=== PATIENT | male | born 1940 | race Caucasian/White ===

== ENCOUNTER 2019-02-14 02:43 | Outpatient (CLI) | payer MEDICARE, OTHER, SELFPAY ==
[2019-02-14 11:21] LABS: Anion Gap 10.5 mmol/L (3-11); BUN 21 mg/dL (7-18); CO2 25.5 mmol/L (21.0-32.0); CREATININE 1.49 mg/dL (0.70-1.30); Calcium 8.7 mg/dL (8.5-10.1); Chloride 105 mmol/L (98-107); Estimated GFR 45.61 (mL/min/1.73m2); Glucose 100 mg/dL (70-100); Potassium 4.1 mmol/L (3.5-5.1); Sodium 141 mmol/L (136-145)
[2019-02-15 09:49] LABS: PSA, Screening 5.6 ng/ml (0-6.5)
== END 2019-02-14 03:03 ==
PROVIDERS: PCP Family Medicine; Visit Provider Family Medicine
DX: I10 Essential (primary) hypertension (principal); R97.20 Elevated prostate specific antigen [PSA]; Z12.5 Encounter for screening for malignant neoplasm of prostate
CPT/HCPCS: 36415; 80048; 84153

== ENCOUNTER 2020-03-22 04:03 | Outpatient (CLI) | payer MEDICARE, SELFPAY ==
[2020-03-22 12:23] LABS: Anion Gap 8.9 mmol/L (3-11); BUN 22 mg/dL (7-18); CO2 26.1 mmol/L (21.0-32.0); CREATININE 1.57 mg/dL (0.70-1.30); Chloride 105 mmol/L (98-107); Estimated GFR 42.83 (mL/min/1.73m2); Glucose 112 mg/dL (74-106); Potassium 4.7 mmol/L (3.5-5.1); Sodium 140 mmol/L (136-145)
[2020-03-25 10:17] LABS: PSA, Screening 6.7 ng/mL (0.0-6.5)
== END 2020-03-22 04:23 ==
PROVIDERS: PCP Family Medicine; Visit Provider Family Medicine
DX: N13.9 Obstructive and reflux uropathy, unspecified (principal); Z12.5 Encounter for screening for malignant neoplasm of prostate; I10 Essential (primary) hypertension
CPT/HCPCS: 36415; 80048; 84153

== ENCOUNTER 2021-01-29 14:54 | Outpatient (REF) | payer MEDICARE, SELFPAY ==
[2021-01-29 22:30] LABS: BUN 20 mg/dL (7-18); CREATININE 1.4 mg/dL (0.70-1.30); Calculated LDL 84 mg/dL (<100); Cholesterol 160 mg/dL (<200); Estimated GFR 48.76 (mL/min/1.73m2); HDL Cholesterol 52 mg/dL (40-60); Triglyceride 120 mg/dL (<150)
[2021-01-29 22:36] LABS: Hemoglobin A1C 5.9 % (<5.7)
[2021-01-30 18:11] LABS: PSA, Screening 6.4 ng/mL (0.0-6.5)
== END 2021-01-29 14:55 | disposition home or self-care (01) ==
LOC: LBN 14:54
PROVIDERS: PCP Nurse Practitioner Family; Visit Provider Nurse Practitioner Family
DX: R73.9 Hyperglycemia, unspecified (principal); I10 Essential (primary) hypertension; N13.9 Obstructive and reflux uropathy, unspecified; E66.9 Obesity, unspecified; Z12.5 Encounter for screening for malignant neoplasm of prostate; Z00.00 Encounter for general adult medical examination without abnormal findings
CPT/HCPCS: 80061; 84153; 84520; 82565; 83036

== ENCOUNTER 2022-06-16 16:27 | Outpatient (REF) | payer MEDICARE, SELFPAY ==
[2022-06-16 21:21] LABS: Bilirubin Negative (Negative); Blood Trace-intact (Negative); Clarity Cloudy (Clear); Glucose Negative (Negative); Ketones Negative (Negative); Leukocyte Esterase Trace (Negative); Nitrite Negative (Negative); Urobilinogen 0.2 EU/dL (Up TO 0.2)
[2022-06-16 22:16] LABS: Bacteria Many HPF (Negative); C & S Indicated? Yes; Casts Negative LPF (Negative); Crystals Few Triple Phos HPF (Negative); Epithelial Cells Negative HPF (Negative); Mucus Negative (Negative); RBC Negative HPF (0-2); WBC >50 HPF (0-5)
== END 2022-06-16 16:28 | disposition home or self-care (01) ==
LOC: LBN 16:27
PROVIDERS: PCP Nurse Practitioner Family; Visit Provider Physician Assistant
DX: R39.15 Urgency of urination (principal); R35.0 Frequency of micturition; N39.0 Urinary tract infection, site not specified
CPT/HCPCS: 87077; 81003; 81015; 87086; 87186

== ENCOUNTER 2022-07-30 16:07 | Inpatient (IN) | payer MEDICARE, SELFPAY ==
--- NOTE | 2022-07-30 16:00 | RT.EKG_ITS ---
APPROVED REPORT Exam: Resting ECG Reason for Exam: chest pain Patient Location: E HR:95 bpm ECG Measurements Heart Rate 95 AXIS IA 178 P 78 QRSd 90 QRS 23 QT 346 T 52 QTc 435 Conclusion Sinus rhythm...normal P axis, V-rate 60- 99
[2022-07-30 16:15] VITALS: BP 161/86; PULSE 90; RESP 20; TEMP 36.8; O2SAT 98
--- NOTE | 2022-07-30 16:24 | ED.GENADUL_ITS ---
Discharge Plan Disposition Patient Disposition: [facility] INPATIENT Condition: Improving Discharge Details Chief Complaint: Chest Pain Clinical Impression: Unstable angina Primary Care Provider: Sanchez Gomez ED Provider: Dustin De Jesus Home Meds and New Rx's Prescriptions: No Action amlodipine 10 mg tablet 10 mg PO DAILY Qty: 90 4RF ibuprofen 800 mg tablet 800 mg PO TID PRN (Reason: pain) Qty: 30 2RF Rx Instructions: Take with food losartan 50 mg tablet 50 mg PO DAILY Qty: 90 3RF Medical Decision Making This is an 82-year-old male who presents on referral from urgent care. Has history of hypertension. He states his primary form of exercise is playing golf and will typically walk 9 holes. Last weekend while walking he developed anterior chest pressure and decided to use a golf cart which improved the discomfort. Today he was golfing and again developed chest pressure that persisted during the golf round while using a cart. He states he now has no further chest discomfort. He is not known to have coronary disease. He arrives chest pain-free. Differential diagnosis is worrisome for an anginal type equivalent. Patient was placed on a monitor technician, IV access established and he was referred for laboratory and chest x- ray. Patient's laboratories will note a positive troponin at the low level of 70. CBC is unremarkable. Chemistries note a BUN of 23 and creatinine 1.5, BNP of 92. Chest x-ray with no acute findings. See the formal report. Given the patient's history of exertional chest discomfort, low-grade troponin elevation, and the risk factors for coronary artery disease, I do feel he ought to be admitted. HPI General Mode of arrival: ambulatory . Date/Time Provider Initiated Documentation: 07/30/22 16:12 . Limitations to Documentation: no limitations . Information obtained by: patient . History of Present Illness 82 year old M presents to the emergency department with the chief complaint of Chest pain with exertion, now improved, described as mild, and is localized to the chest. Patient reports no radiation. Patient started experiencing this day(s) and it has been intermittent and now resolved. No relieving factors improve symptom(s), No exacerbating factors reported . Patient notes denies shortness of breath, syncope and weakness. Patient did receive the following treatments prior to arrival, none Related Data Home Medications Medication Instructions Recorded Confirmed ibuprofen 800 mg tablet 800 mg PO TID PRN pain #30 tabs 07/01/20 07/30/22 amlodipine 10 mg tablet 10 mg PO DAILY #90 tab-caps 01/30/22 07/30/22 losartan 50 mg tablet 50 mg PO DAILY #90 tabs 07/29/22 07/30/22 Previous Rx's Medication Instructions Recorded ibuprofen 800 mg tablet 800 mg PO TID PRN pain #30 tabs 07/01/20 amlodipine 10 mg tablet 10 mg PO DAILY #90 tab-caps 01/30/22 losartan 50 mg tablet 50 mg PO DAILY #90 tabs 07/29/22 Allergies Allergy/AdvReac Type Severity Reaction Status Date / Time HAJA Inhibitors AdvReac COUGH Verified 07/30/22 15:47 General Stated Complaint: Chest Pain PHYLLIS: 2 Review of Systems Narrative: No syncope. Denies fall or injury. No fever or cough. 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 Brother No problems noted. Sister No problems noted. Sister No problems noted. Sister No problems noted. Son No problems noted. Daughter No problems noted. Social History Smoking/Tobacco Use Status: Current every day Tobacco Type: cigarettes Second Hand Exposure: Yes Smoking risk assessment performed?: Yes Alcohol Intake: never Drug use: Never Substance use type: does not use Caregiver/Support person: No Household members: spouse Housing: house Communication Needs: None Do you need help understanding health information?: Rarely Pets and animals: No Sexually active: Yes Do you think of yourself as: straight/heterosexual Current gender identity: male What is your relationship status?: How often do you talk on the phone with friends or family?: once per week How often do you get together with friends or relatives?: decline to answer How often do you attend caodaism or zoroastrianism services?: 4 or more times per year Do you belong to any clubs or organized social groups?: yes Panel score (0-1 are the most socially isolated patients): 3 What type of physical activity do you participate in: walking and other Details: golf Duration: > 90 minutes/day Frequency: 5-6 times per week Liss/Roman Catholic: Church Special liss needs: No Seatbelt use: always Helmet use: No Drive intox or ride w/intox class a truck driver: No Do you feel safe at home: Yes Do you feel safe in your relationship?: Yes Exam Narrative Exam Narrative: GEN: awake, alert, oriented 3. Pleasant, well groomed, interactive. HEAD: Normocephalic, atraumatic ENT: Mucous membranes moist, oropharynx unremarkable, External ear exam un remarkable EYES: PERRL, EOMI NECK: Full ROM, no JEAN, no menigismus CHEST/RESP: Nontender, clear to auscultation bilateral, no wheeze/rhonchi/rales CARDIOVASCULAR: RRR, no murmur, rub liz. 2+ Rad pulse bilateral ABDOMEN: Soft, nontender, no mass. +Bowel sounds EXT: Full ROM, no edema, no rash Neuro: Grossly normal neurologic exam, conversant, interactive. Psych: Speech fluent, thoughts congruent, affect normal Course Vital Signs Vital signs: Vital Signs Temperature 36.8 C 07/30/22 16:15 Pulse 90 07/30/22 16:15 Respiratory Rate 20 07/30/22 16:15 Blood Pressure 161/86 H 07/30/22 16:15 Pulse Oximetry 98 07/30/22 16:15 Temperature 36.8 C 07/30/22 16:15 Temperature Source Temporal Artery Scan 07/30/22 16:15 Pulse 90 07/30/22 16:15 Respiratory Rate 20 07/30/22 16:15 Blood Pressure 161/86 H 07/30/22 16:15 Blood Pressure Position Supine 07/30/22 16:15 Pulse Oximetry 98 07/30/22 16:15 Oxygen Delivery Method Room Air 07/30/22 16:15 Oxygen Flow Rate 0 07/30/22 16:15 Pain Level 0 07/30/22 16:15
[2022-07-30 16:41] LABS: Abs Immature Grans 0.04 10^3/uL (0.0-0.06); Absolute Basophil Count 0.03 10^3/uL (0.0-0.2); Absolute Eosinophil Count 0.04 10^3/uL (0.0-0.7); Absolute Monocyte Count 0.59 10^3/uL (0.1-0.8); Absolute Neutrophil Count 6.95 10^3/uL (1.2-6.7); Basophils % 0.3; Eosinophils % 0.5; HCT 42.4 % (40.0-50.0); HGB 13.9 g/dL (13.5-17.5); Immature Grans % 0.5; Lymphocytes % 12.6; MCH 29.9 pg (27.0-33.0); MCHC 32.8 % (32.0-36.0); MCV 91 fL (80-95); MPV 10.3 fL (8.0-11.0); Monocytes % 6.7; Neutrophils % 79.4; Platelet Count 167 10^3/uL (130-400); RBC 4.65 10^6/uL (4.36-5.78); RDW 12.9 % (11.8-14.1); RDW-SD 43.6 fL; WBC 8.75 10^3/uL (4.4-10.8)
--- NOTE | 2022-07-30 17:02 | DI.RAD_ITS ---
Exam(s) XR PORTABLE CHEST AP EXAM: XR PORTABLE CHEST AP CLINICAL HISTORY: chest pain. TECHNIQUE: 2D digital imaging was performed. COMPARISON: CR PORTABLE CHEST ONE VIEW from 08/07/2015 FINDINGS: Single AP portable view. Heart size is upper normal. The mediastinum is not widened. Lungs are clear. No infiltrates nor obvious pleural effusions. IMPRESSION: No acute pulmonary findings on this single AP portable view of the chest. DATA REPOSITORY: RADIATION DOSE DELIVERED:
[2022-07-30 17:18] VITALS: RESP 20
--- NOTE | 2022-07-30 17:29 | DI.VRAD_ITS ---
PROCEDURE INFORMATION: Exam: XR Chest Exam date and time: 07/30/2022 4:42 PM Age: 82 years old Clinical indication: Other: Chest pain TECHNIQUE: Imaging protocol: Radiologic exam of the chest. Views: 1 view. COMPARISON: CR PORTABLE CHEST ONE VIEW 08/07/2015 8:05 PM FINDINGS: Lungs: Unremarkable. No consolidation. Pleural spaces: Unremarkable. No pleural effusion. No pneumothorax. Heart/Mediastinum: Unremarkable. No cardiomegaly. Bones/joints: Unremarkable. IMPRESSION: 1. No acute findings. 2. Clear lung anguiano and pleural space. 3. Stable exam since 08/07/2015. Dictated and Authenticated by: Gustavo Anderson MD. Ordering:PATRICK Chan MD
[2022-07-30 17:41] LABS: ALT 32 U/L (16-63); AST 27 U/L (15-37); Albumin 3.8 g/dL (3.4-5.0); Alkaline Phosphatase 73 U/L (46-116); Anion Gap 13.1 mmol/L (3-11); BUN 23 mg/dL (7-18); Bilirubin, Total 0.8 mg/dL (0.2-1.0); CO2 22.9 mmol/L (21.0-32.0); CREATININE 1.5 mg/dL (0.70-1.30); Calcium 8.8 mg/dL (8.5-10.1); Chloride 107 mmol/L (98-107); Estimated GFR 46.48 (mL/min/1.73m2); Glucose 113 mg/dL (74-106); Magnesium 1.8 mg/dL (1.8-2.4); NT-proBNP 92 pg/mL (<300); Potassium 3.9 mmol/L (3.5-5.1); Sodium 143 mmol/L (136-145); Total Protein 8.2 g/dL (6.4-8.2)
[2022-07-30 17:44] LABS: Troponin I 73 ng/L (<or=60)
[2022-07-30] MEDS: Aspirin 325 MG TAB PO (17:50)
[2022-07-30 18:15] LABS: Source Nasal/Nares
[2022-07-30] MEDS: Enoxaparin 100 MG/ML SYR SC (18:31)
[2022-07-30] MEDS: Clopidogrel 300 MG TAB PO (18:32)
[2022-07-30 18:46] LABS: COVID-19 PCR Negative (Negative)
[2022-07-30 20:13] LABS: Troponin I 120 ng/L (<or=60)
[2022-07-30 20:19] VITALS: BP 134/86; PULSE 82; RESP 16; TEMP 37.1; O2SAT 97
[2022-07-30 20:30] VITALS: PULSE 79
[2022-07-30] MEDS: Atorvastatin 40 MG TAB 80 MG PO (21:13)
--- NOTE | 2022-07-30 22:46 | W.PM.HP.N ---
Date of service: 07/30/22 Time of Service: 21:40 Assessment and Plan Assessment and plan (1) Unstable angina: Status: Acute Assessment and plan: Patient's typical sympotms and elevated troponin are consistent with acute coronary syndrome. Pattern fits with unstable angina. EKG actually does not show ischemic changes. He is now chest pain free. I agree with treating with anticoagulation, DAPT, high intensity statin. 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 Given this, I will resume low dose beta dori therapy with metoprolol this time. He is not in CHF clinically. He should have further evaluation, likely should have non-emergent catheterization vs starting with ETT/MPI. Will consult cardiology to advise this choice and on timing. (2) Bradycardia: Status: Acute Assessment and plan: Pulse is now up in the 80s off metoprolol. Resuming beta dori therapy as above, but will not push dose. (3) Renal insufficiency, mild: Status: Acute Assessment and plan: Looks like he has stable stage 3a CKD. Losartan should help this, though he he hesitant about this medicaiton since he started it in the past few weeks. (4) Essential hypertension: Status: Chronic Assessment and plan: As above, start metoprolol. Cutting back losartan to make sure BP can tolerate this. Continue amlodipine for now but it may make sense to cut this in favor of ARB to get renal insufficinecy. (5) DVT prophylaxis: Status: Acute Assessment and plan: He is on full dose LMWH (6) Discharge planning issues: Status: Acute Assessment and plan: Real plans to shut down his home and travel sound next week, he is concerned about the timing of the work up. We will figure that out. History of Present Illness History of Present Illness Chief Complaint: chest pressure Narrative: 82 yo man with a history of hypertension and stage 3a CKD presenting with exertional chest pressure occurring after progressively less physical activity in the past week. He first felt dull pain/pressure in upper chest about a week ago while walking 9 holes of golf. Bilateral, moderate, slight radiation to left arm. Associated with some shortness of breath, diaphoresis. No nausea, increase in chronic dizziness, or palpitations. That first time the pain lasted a few minutes, stopped after he got in a cart and he was able to continue playing golf without pain. On the day of admission, he was using a cart and he still had the chest pain for about 2.5 hours strait. It didn't go away until he stopped physical activity all together. Currently he has no chest pain. Very relevantly, Mr. Eckert states his PCP had recently noted his pulse was too low, and first cut his atenolol in half about a month ago, then stopped it all together about 2 weeks ago. It was replaced with losartan, which he titrated up from 25mg to 50mg yesterday. Review of Systems Constitutional Constitutional: Denies anorexia, Denies chills, Denies fever(s), Denies headache(s), Denies lethargy, Denies weakness and Denies weight gain Eyes Eyes: Denies change in vision and Denies irritation ENT Ears, Nose, Mouth, and Throat: Denies dizziness, Denies headache(s), Denies nasal congestion, Denies nasal discharge and Denies sore throat Cardiovascular Cardiovascular: Reports as per HPI, Denies pedal edema, Denies palpitations and Denies orthopnea Respiratory Respiratory: Denies cough, Denies excessive phlegm production and Denies wheezing Gastrointestinal Gastrointestinal: Denies abdominal pain, Denies hematochezia, Denies change in stool character, Denies heartburn and Denies vomiting Genitourinary Genitourinary: Denies hematuria, Denies dysuria and Denies urinary incontinence Musculoskeletal Musculoskeletal: Denies arthralgias and Denies joint swelling Integumentary/Breasts Skin/Breast: Denies rash and Denies skin ulcer Neurologic Neurologic: Denies dizziness, Denies headache(s), Denies sensory deficit and Denies weakness Psychiatric Psychiatric: Denies anxiety and Denies mood swings Endocrine Endocrine: Denies palpitations Hematologic/Lymphatic Hematologic/Lymphatic: Denies easy bleeding Allergic/Immunologic Allergic/Immunologic: Denies wheezing PFSH All Active Problems (Updated 07/30/22 @ 23:08 by Mor Osuna) Discharge planning issues (Acute) DVT prophylaxis (Acute) Unstable angina (Acute) Bradycardia (Acute) Onychogryphosis (Acute) Low back pain of over 3 months duration (Acute) Renal insufficiency, mild (Acute) 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 Brother No problems noted. Sister No problems noted. Sister No problems noted. Sister No problems noted. Son No problems noted. Daughter No problems noted. Social History (Updated 07/30/22 @ 23:03 by Mor Osuna) Smoking/Tobacco Use Status: Former Tobacco Use Second Hand Exposure: No Smoking risk assessment performed?: Yes Alcohol Intake: never Drug use: Never Substance use type: does not use Caregiver/Support person: No Household members: spouse Housing: house Communication Needs: None Do you need help understanding health information?: Rarely Pets and animals: No Sexually active: Yes Do you think of yourself as: straight/heterosexual Current gender identity: male What is your relationship status?: How often do you talk on the phone with friends or family?: once per week How often do you get together with friends or relatives?: decline to answer How often do you attend gnosticist or synagogue services?: 4 or more times per year Do you belong to any clubs or organized social groups?: yes Panel score (0-1 are the most socially isolated patients): 3 What type of physical activity do you participate in: walking and other Details: golf Duration: > 90 minutes/day Frequency: 5-6 times per week Liss/Voodoo: Confucianist Special liss needs: No Seatbelt use: always Helmet use: No Drive intox or ride w/intox non cdl driver: No Do you feel safe at home: Yes Do you feel safe in your relationship?: Yes Additional Social history: Lives with x 59 years Laura in [place]. Retired. [employer] Stays in [facility] every winter. Loves to Golf. Meds Allergies and Home Medications Allergies Allergy/AdvReac Type Severity Reaction Status Date / Time HAJA Inhibitors AdvReac COUGH Verified 07/30/22 15:47 Home Medications Medication Instructions Recorded Confirmed Type ibuprofen 800 mg tablet 800 mg PO TID PRN pain #30 tabs 07/01/20 07/30/22 Rx amlodipine 10 mg tablet 10 mg PO DAILY #90 tab-caps 01/30/22 07/30/22 Rx losartan 50 mg tablet 50 mg PO DAILY #90 tabs 07/29/22 07/30/22 Rx Exam Narrative Exam Narrative: GEN: Alert and oriented, very pleasant and cooperative, gives linear history. No acute distress at rest. HEENT: Head atraumatic. Conjunctiva clear, no icterus. PEERL, EOMI. no rhinorrhea. MMM, OP benign, edentulous. Neck is supple with no masses or lymphadenopathy, trachea midline LUNGS: CTAB with normal effort, speaking in full sentances CV: RRR with no murmurs, gallops, or rubs. ABD: +BS, soft, NT/ND EXT: no cyanosis, clubbing, or edema MSK: No joint redness or swelling NEURO: CN 2-12 grossly intact. Normal movement of 4 extremities. Normal speech and coordination. no tremor SKIN: No rashes or open wounds. PSYCH: normal mood and affect Results Imaging Chest x-ray: report reviewed (1. No acute findings. 2. Clear lung anguiano and pleural space. 3. Stable exam since 08/07/2015.) EKG: report reviewed and image reviewed (NSR, nl axis, no ischemic changes.) Labs Result diagrams: 07/30/22 16:33 07/30/22 17:10 Labs: Laboratory Results - last 24 hr 07/30/22 07/30/22 07/30/22 16:33 16:33 17:10 WBC 8.75 RBC 4.65 Hgb 13.9 Hct 42.4 MCV 91 MCH 29.9 MCHC 32.8 RDW 12.9 Plt Count 167 MPV 10.3 Immature Gran % 0.5 Neutrophils % 79.4 Lymphocytes % 12.6 Monocytes % 6.7 Eosinophils % 0.5 Basophils % 0.3 Nucleated RBC % 0.0 Absolute Neutrophils 6.95 H Absolute Lymphocytes 1.10 L Absolute Monocytes 0.59 Absolute Eosinophils 0.04 Absolute Basophils 0.03 Sodium Cancelled 143 Potassium Cancelled 3.9 Chloride Cancelled 107 Carbon Dioxide Cancelled 22.9 Anion Gap Cancelled 13.1 H BUN Cancelled 23 H Creatinine Cancelled 1.5 H Est GFR (CKD-EPI 2020) Cancelled 46.48 Glucose Cancelled 113 H Calcium Cancelled 8.8 Magnesium Cancelled 1.8 Total Bilirubin Cancelled 0.8 AST Cancelled 27 ALT Cancelled 32 Alkaline Phosphatase Cancelled 73 Troponin I Cancelled 73 H* NT-Pro-B Natriuret Pep Cancelled 92 Total Protein Cancelled 8.2 Albumin Cancelled 3.8 COVID-19 Source SARS-CoV-2 (PCR) 07/30/22 07/30/22 18:06 19:43 WBC RBC Hgb Hct MCV MCH MCHC RDW Plt Count MPV Immature Gran % Neutrophils % Lymphocytes % Monocytes % Eosinophils % Basophils % Nucleated RBC % Absolute Neutrophils Absolute Lymphocytes Absolute Monocytes Absolute Eosinophils Absolute Basophils Sodium Potassium Chloride Carbon Dioxide Anion Gap BUN Creatinine Est GFR (CKD-EPI 2020) Glucose Calcium Magnesium Total Bilirubin AST ALT Alkaline Phosphatase Troponin I 120 H* NT-Pro-B Natriuret Pep Total Protein Albumin COVID-19 Source Nasal/Nares SARS-CoV-2 (PCR) Negative Last Vital Signs Temp 37.1 C 07/30/22 20:19 Pulse 82 07/30/22 20:19 Resp 16 07/30/22 20:19 BP 134/86 07/30/22 20:19 Pulse Ox 97 07/30/22 20:19
[2022-07-30 23:09] VITALS: BP 151/76; PULSE 62; RESP 16; TEMP 37.4; O2SAT 97
[2022-07-30] MEDS: Metoprolol 25 MG TAB PO (23:11)
[2022-07-31] VITALS (8 sets, daily range): BP systolic 119–155; BP diastolic 76–83; PULSE 53–68; RESP 13–18; TEMP 35.8–36.6; O2SAT 98–99
[2022-07-31] MEDS: Enoxaparin 100 MG/ML SYR SC (06:22)
--- NOTE | 2022-07-31 08:03 | INITIAL_ITS ---
- If Service Date Differs Date of service: 07/31/22 Time of Service: 08:03 Care Management Initial Assess REASON FOR HOSPITALIZATION:: NSTEMI PAST MEDICAL HISTORY/PAST SURGICAL HISTORY:: All Active Problems (Updated 07/30/22 @ 23:08 by Mor Osuna). Discharge planning issues (Acute). DVT prophylaxis (Acute). Unstable angina (Acute). Bradycardia (Acute). Onychogryphosis (Acute). Low back pain of over 3 months duration (Acute). Renal insufficiency, mild (Acute). 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 Deviated nasal septum (Chronic). Essential hypertension (Chronic). neg stress test. Heart murmur (Chronic). mitral murmur and click. Obesity (Chronic). Sarcoidosis (Chronic). BPV (benign positional vertigo) (Chronic). Wallenberg syndrome (Chronic). Obstructive uropathy (Chronic). Surgical History . Prostate surgery. Vasectomy PREVIOUS FUNCTIONAL STATUS/SOCIAL/FAMILY SUPPORTS:: John lives in a single family home in [place] with his Laura.He has 2 children, a son who lives in [place] and a daughter who lives in [place]. He also has 2 grandchildren. 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 He is independent at [facility] and does not receive any services. CURRENT FUNCTIONAL STATUS:: John was sitting up in a chair when CM met with him. He was pleasant and engaged easily with CM. John talked about his life in [facility] and how much he loves the peace and quiet. He spent 12 years in [place] and was happy to return to [place]. John shared that he spends ramirez in [place]. He is scheduled to return there next week. He is an avid golfer and looks forward to playing again in [place]. ADVANCE DIRECTIVES:: none on file Has patient been provided with info about the portal/API?: Yes Did the patient sign up for the portal?: Yes (previously) CODE STATUS:: Full Code INSURANCE COVERAGE / FINANCIAL ISSUES:: medicare. [employer] senior supplement CURRENT HOME/COMMUNITY SERVICES/EQUIPMENT:: none PRIMARY CARE PHYSICIAN:: Sanchez Gomez POTENTIAL DISCHARGE NEEDS:: follow up with PCP , cardiology and plan of care PATIENT/FAMILY EDUCATION NEEDS:: Review of discharge instructions, limitations, activity, diet, medications, follow up plan, Ask Me Three TRANSPORTATION:: to be determined by disposition PLAN:: John will be discharged home with no new services. He will follow up with community providers and plan of care and transport with family. CM will follow and assess for ongoing discharge concerns.
[2022-07-31 08:04] LABS: Troponin I 81 ng/L (<or=60)
[2022-07-31] MEDS: amLODIPine 10 MG TAB PO (08:17)
[2022-07-31] MEDS: Metoprolol 25 MG TAB PO (08:17)
[2022-07-31] MEDS: Clopidogrel 75 MG TAB PO (08:17)
[2022-07-31] MEDS: Aspirin E.C. 81 MG TABEC PO (08:18)
[2022-07-31] MEDS: Losartan 50 MG TAB 25 MG PO (08:18)
--- NOTE | 2022-07-31 14:11 | CHAPLAIN ---
John was up in the chair when I visited. He said he is feeling ok and hopes to go home soon. He's been staying in touch with his by phone, but said he hasn't been told much yet so he hasn't been able to relay much information to her.
[2022-07-31] MEDS: Normal Saline Flush 10 ML SYR IVP (14:22)
--- NOTE | 2022-07-31 14:57 | W.PM.DS.N ---
Date of service: 07/31/22 Time of Service: 15:01 DS: Diagnosis Discharge Diagnosis (1) Unstable angina: Status: Acute Asessment and Plan: No chest pain at rest. NSTEMI. Echocardiogram pending. Metoprolol initiated. Recently stopped atenolol d/t bradycardia. HR during this hospitalization was generally in the 60's while taking metoprolol. ASA 81mg and Plavix initiated. Atorvastatin 80mg QHS initiated. MPI stress testing scheduled for outpt this coming Wednesday. Pt instructed on use of SL Nitroglycerin and returning to the ED should CP recur. Light activity around the house only. (2) Renal insufficiency, mild: Status: Acute Asessment and Plan: Chronic; stable. (3) Essential hypertension: Status: Chronic Asessment and Plan: Amlodipine initiated. Losartan decrease from 50mg to 25mg. Metoprolol XL 25mg initiated. Close BP monitoring as outpt, as well as HR monitoring. (4) Discharge planning issues: Status: Acute Asessment and Plan: He is going to his [place] home next Wednesday. MPI Stress testing scheduled for this coming Wednesday. Discharge Plan Disposition Patient Disposition: HOME Condition: Stable Discharge Details Reason For Visit: NSTEMI Admit Date/Time: 07/30/22 18:26 Admit Provider: Mor Osuna Attending Provider: Mor Osuna Primary Care Provider: Sanchez Gomez Hospital Course Hospital Course: 82 yo male with a history of hypertension and stage 3a CKD presenting with exertional chest pressure occurring after progressively less physical activity in the past week.? He first felt dull pain/pressure in upper chest about a week ago while walking 9 holes of golf.? Bilateral, moderate, slight radiation to left arm.? Associated with some shortness of breath, diaphoresis.? No nausea, increase in chronic dizziness, or palpitations.? That first time the pain lasted a few minutes, stopped after he got in a cart and he was able to continue playing golf without pain.? On the day of admission, he was using a cart and he still had the chest pain for about 2.5 hours strait.? It didn't go away until he stopped physical activity all together.? Currently he has no chest pain. Very relevantly, Mr. Eckert states his PCP had recently noted his pulse was too low, and first cut his atenolol in half about a month ago, then stopped it all together about 2 weeks ago.? It was replaced with losartan, which he titrated up from 25mg to 50mg the day before this admission. In ED his troponin was 73. It trended to 120 the down to 73. Labs were otherwise unremarkable. Creatinine 1.5; at his baseline. NTProBNP normal at 92. CXR w/o acute pulmonary findings. See diagnosis ? He will f/u with his PCP in [facility] where he is returning to next week. Home Meds and New Rx's Prescriptions: New clopidogrel 75 mg Tablet 75 mg PO DAILY Qty: 30 0RF aspirin 81 mg Tablet,Delayed Release (Dr/Ec) 81 mg PO DAILY Qty: 0 0RF nitroglycerin 0.4 mg Tablet, Sublingual 0.4 mg sublingual Q5 MIN PRN X3 PRNQty: 12 0RF metoprolol succinate 25 mg tablet extended release 24 hr 25 mg PO HS Qty: 30 0RF atorvastatin 80 mg tablet 80 mg PO QHS Qty: 30 0RF Continued amlodipine 10 mg tablet 10 mg PO DAILY Qty: 90 4RF losartan 50 mg tablet 50 mg PO DAILY Qty: 90 3RF Discontinued ibuprofen 800 mg tablet 800 mg PO TID PRN (Reason: pain) Qty: 30 2RF Rx Instructions: Take with food Discharge Instructions Additional Instructions: Losartan 50mg: take 1/2 tab instead of a whole tab. Stand Alone Forms: Nursing Discharge Form Referrals: [facility] Radiology Nuclear Med [Other] - 08/04/22 11:30 am Activity:: Mild activity only Equipment/Supplies:: No Equipment Needed Diet:: Heart Healthy Discharge Orders Discharge Orders: Discharge Order (Routine); Ordered 07/31/22 Ordered By: Marty Amaya Other Ambulatory Orders: NM MPI rest & stress grp (Routine) Location: None Selected Ordered By: Marty Amaya DS: Summary Time Spent with Patient providing and/or coordinating discharge services: Greater than 30 minutes Status at Discharge Functional status at discharge: independent ambulation Overall status at discharge: patient is not back to baseline Mental Status: mental status grossly normal Speech and Movement: speech and movement normal Mood: congruent mood Affect: normal affect Exam Narrative Exam Narrative: GEN: Alert and oriented, very pleasant and cooperative, gives linear history. No acute distress at rest. Sitting in recliner HEENT: Head atraumatic. Conjunctiva clear, no icterus. LUNGS: CTAB with normal effort, speaking in full sentences CV: RRR with no murmurs ABD: +BS, soft, NT/ND EXT: no cyanosis, clubbing, or edema MSK: No joint redness or swelling NEURO: Normal movement of 4 extremities. Normal speech and coordination. no tremor SKIN: No rashes or open wounds. PSYCH: normal mood and affect Psych Mental Status: mental status grossly normal Speech and Movement: speech and movement normal Mood: congruent mood Affect: normal affect DS: Data Vitals/I&O Vitals and I&O: Vital Signs Temperature 36.1 C L 07/31/22 11:40 Temperature Source Tympanic 07/31/22 11:40 Pulse 53 L 07/31/22 11:40 Pulse Rhythm Regular 07/31/22 08:15 Respiratory Rate 18 07/31/22 11:40 Respiratory Effort Non-Labored 07/31/22 08:15 Respiratory Depth Normal 07/31/22 08:15 Respiratory Pattern Normal 07/31/22 08:15 Blood Pressure 119/76 07/31/22 11:40 Blood Pressure Position Supine 07/30/22 16:15 Pulse Oximetry 98 07/31/22 11:40 Oxygen Delivery Method Room Air 07/31/22 11:40 Oxygen Flow Rate 0 07/31/22 11:40 Pain Level 0 07/31/22 11:40 Intake & Output 07/30/22 07/31/22 07/31/22 23:59 11:59 23:59 Intake Total 400 / 690 290 / 690 Output Total 400 / 400 Balance -400 / -400 400 / 690 290 / 690 Weight 97.522 kg 99.2 kg Intake: IV Oral 400 / 680 280 / 680 Output: Urine 400 / 400 Other: Urine Color Yellow Straw Urine Appearance Clear Urine Odor None Comment pT stated that he voided. Voiding Methods Toilet Toilet Data Completed and Pending Labs on day of discharge: Labs from last 24 hours 07/31/22 07/30/22 07/30/22 07:30 19:43 18:06 WBC RBC Hgb Hct MCV MCH MCHC RDW Plt Count MPV Immature Gran % Neutrophils % Lymphocytes % Monocytes % Eosinophils % Basophils % Nucleated RBC % Absolute Neutrophils Absolute Lymphocytes Absolute Monocytes Absolute Eosinophils Absolute Basophils Sodium Potassium Chloride Carbon Dioxide Anion Gap BUN Creatinine Est GFR (CKD-EPI 2020) Glucose Calcium Magnesium Total Bilirubin AST ALT Alkaline Phosphatase Troponin I 81 H* 120 H* NT-Pro-B Natriuret Pep Total Protein Albumin COVID-19 Source Nasal/Nares SARS-CoV-2 (PCR) Negative 07/30/22 07/30/22 07/30/22 17:10 16:33 16:33 WBC 8.75 RBC 4.65 Hgb 13.9 Hct 42.4 MCV 91 MCH 29.9 MCHC 32.8 RDW 12.9 Plt Count 167 MPV 10.3 Immature Gran % 0.5 Neutrophils % 79.4 Lymphocytes % 12.6 Monocytes % 6.7 Eosinophils % 0.5 Basophils % 0.3 Nucleated RBC % 0.0 Absolute Neutrophils 6.95 H Absolute Lymphocytes 1.10 L Absolute Monocytes 0.59 Absolute Eosinophils 0.04 Absolute Basophils 0.03 Sodium 143 Cancelled Potassium 3.9 Cancelled Chloride 107 Cancelled Carbon Dioxide 22.9 Cancelled Anion Gap 13.1 H Cancelled BUN 23 H Cancelled Creatinine 1.5 H Cancelled Est GFR (CKD-EPI 2020) 46.48 Cancelled Glucose 113 H Cancelled Calcium 8.8 Cancelled Magnesium 1.8 Cancelled Total Bilirubin 0.8 Cancelled AST 27 Cancelled ALT 32 Cancelled Alkaline Phosphatase 73 Cancelled Troponin I 73 H* Cancelled NT-Pro-B Natriuret Pep 92 Cancelled Total Protein 8.2 Cancelled Albumin 3.8 Cancelled COVID-19 Source SARS-CoV-2 (PCR) PFSH All Active Problems NSTEMI (non-ST elevated myocardial infarction) (Acute) Discharge planning issues (Acute) DVT prophylaxis (Acute) Unstable angina (Acute) Bradycardia (Acute) Onychogryphosis (Acute) Low back pain of over 3 months duration (Acute) Renal insufficiency, mild (Acute) 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 Brother No problems noted. Sister No problems noted. Sister No problems noted. Sister No problems noted. Son No problems noted. Daughter No problems noted. Social History Smoking/Tobacco Use Status: Former Tobacco Use Second Hand Exposure: No Smoking risk assessment performed?: Yes Alcohol Intake: never Drug use: Never Substance use type: does not use Caregiver/Support person: No Household members: spouse Housing: house Communication Needs: None Do you need help understanding health information?: Rarely Pets and animals: No Sexually active: Yes Do you think of yourself as: straight/heterosexual Current gender identity: male What is your relationship status?: How often do you talk on the phone with friends or family?: once per week How often do you get together with friends or relatives?: decline to answer How often do you attend adventist or quaker services?: 4 or more times per year Do you belong to any clubs or organized social groups?: yes Panel score (0-1 are the most socially isolated patients): 3 What type of physical activity do you participate in: walking and other Details: golf Duration: > 90 minutes/day Frequency: 5-6 times per week Liss/Sabianist: Adventism Special liss needs: No Seatbelt use: always Helmet use: No Drive intox or ride w/intox national van truck driver: No Do you feel safe at home: Yes Do you feel safe in your relationship?: Yes Additional Social history: Lives with x 59 years Laura in [place]. Retired. [employer] Stays in [facility] every winter. Loves to Golf.
--- NOTE | 2022-07-31 16:47 | PDOC.CMDIS ---
- If Service Date Differs Date of service: 07/31/22 Time of Service: 16:47 LACE Index Scoring Tool - Questions: Length of Stay (in days): 1 Acuity (Admit via E.D.?): Yes Comorbidities: Liver or Renal Disease E.D. Visits: 1 - Answers: Total Score: 10 Risk of Readmission: High Risk Care Management Discharge Reason for Hospitalization: NSTEMI Discharge Plan: Real will be discharged home with no new services. He will follow up with community providers and plan of care and transport with family. Patient/Family Education Needs: Review of discharge instructions, limitations, activity, diet, medications, follow up plan, Ask Me Three
== END 2022-07-31 16:40 | disposition home or self-care (01) | DRG 281 ==
LOC: ER 19:51 → MS 20:06
PROVIDERS: Family Medicine; Admitting Provider Family Medicine; Emergency Provider Emergency Medicine; PCP Nurse Practitioner Family; Visit Provider Family Medicine
DX: I21.4 Non-ST elevation (NSTEMI) myocardial infarction (principal); N13.8 Other obstructive and reflux uropathy; R00.1 Bradycardia, unspecified; N18.31 Chronic kidney disease, stage 3a; I12.9 Hypertensive chronic kidney disease with stage 1 through stage 4 chronic kidney disease, or unspecified chronic kidney disease; M54.50 Low back pain, unspecified; R27.0 Ataxia, unspecified; J34.2 Deviated nasal septum; I34.0 Nonrheumatic mitral (valve) insufficiency; E66.9 Obesity, unspecified; Z68.31 Body mass index [BMI] 31.0-31.9, adult; G46.3 Brain stem stroke syndrome; D86.9 Sarcoidosis, unspecified
CPT/HCPCS: 36415; 80053; 87635; 93005; 96372; 99285; 71045; 83735; 83880; 84484; 85025; 93010; 93306; 99239; J1650

== ENCOUNTER → 2022-08-03 01:23 | Outpatient (CLI) | payer MEDICARE, SELFPAY ==
--- NOTE | 2022-08-03 09:15 | DI.NM_ITS ---
APPROVED REPORT Exam: Exercise Treadmill Patient Location: Out-Patient Room/Bed: Stress Nurse: Valerie Rolon RN Ordering Provider:MASSIEL GARZA, Contact Number: BMI: 30.84 Baseline Rhythm: Sinus Rhythm Indications: UNSTABLE ANGINA, NSTEMI Medical History Medical History: NSTEMI, Unstable angina, HTN, Heart murmur, Benign postural vertigo Cardiac Medications: Nitro SL, Metoprolol succinate, Losartan, Clopidogrel, Atorvastatin, Aspirin, Am lodipine , Allergies: HAJA inhibitors Cardiac Risk Factors: HTN, CVD Previous Cardiac Procedures: None Pretest Chest Pain Characteristics: No chest pain (denies chest pain over the weekend, after d/c from inpatient) Exercise History: Physically active Physical Disabilities: None Lung Sounds: Clear to auscultation Heart Sounds: Regular Stress Test Details Test: Exercise stress testing was performed using a Bharat protocol. Nuclear Acquisition: Rest Tc-99m/Stress Tc-99m 1 day Rest Isotope: Tc-99m Sestamibi. Dose: 10.0 Date: 08/03/2022 Injection Time: 0930 Stress Isotope: Tc-99m Sestamibi. Dose: 33.0 Date: 08/03/2022 Injection Time: 1130 HR Resting HR Supine: 63 bpm Max Heart Rate (APMHR): 139.941378 bpm Resting HR Standin bpm Target HR (85% APMHR): 118.140994 bpm Max HR Achieved: 121 bpm % of APMHR: 87.05 Recovery HR: 85 bpm HR response to stress: Normal HR response to stress Comment: Patient did not hold metoprolol succinate, per MD order BP Resting BP Supine: 178/86 mmHg Resting BP Standin/72 mmHg Max BP: 192/78 mmHg Recovery BP: 164/76 mmHg BP response to stress: Normal blood pressure response to stress. Comment: Hypertensive at baseline ECG Resting ECG: Sinus Rhythm Ectopy: occasional PVC Stress ECG: Sinus Tachycardia ST Change: Horizonta/Upslopingl ST depression Lead(s): inferior leads Stage: [address] Deviation: 2 mm Arrhythmia: PACs, PAC pair Recovery ECG: Sinus Rhythm Recovery ST Change: Upsloping ST depression Lead(s): inferior leads Recovery ST Deviation: 1 mm Recovery Arrhythmia: PACs, occasional PVC Clinical Reason for Termination: Dyspnea Stress Symptoms: Dyspnea Exercise duration: 08 min53 sec Highest Stage Reached: Stage 3: 3.4 mph at 14% grade. Exercise capacity: 10.16 METs Rate Pressure Product: 62092 Stress ECG Conclusion 1. The resting electrocardiogram showed voltage for left ventricular hypertrophy 2. Patient exercised on the Bharat protocol and completed a workload of 10.16 METS, limited by shortne ss of breath 3. Resting hypertension. Normal hemodynamic response to exercise. Patient achieved 87% of maximum p redicted heart rate for age 4. The electrocardiographic portion of the test was consistent with myocardial ischemia with [address] depression noted in the inferior leads 5. See MPI report Stress Test Summary STAGE Time (mins) Speed (mph) Grade (%) HR BP SpO2 SYMPTOMS METS Supine 63 178/86 Standing 76 160/72 97 1 3 1.7 10 95 180/78 97 4.5 2 6 2.5 12 107 192/72 98 7 1 min recovery 104 181/62 98 3 min recovery 96 192/68 98 6 min recovery 86 192/78 9 min recovery 85 164/76 MPI Conclusion Myocardial perfusion is normal. There is no evidence of myocardial ischemia or prior infarction EF 68%, normal wall motion Radiologist Interpretation Radiologist agrees with Battery Stacker's Interpretation. Radiologist Interpretation by: Elisha Prasad MD Interpretation Date/Time: 08/03/2022 17:31:38
== END ==
PROVIDERS: PCP Nurse Practitioner Family; Visit Provider Family Medicine
DX: I21.4 Non-ST elevation (NSTEMI) myocardial infarction (principal); I10 Essential (primary) hypertension; I20.0 Unstable angina
CPT/HCPCS: 78452; 93016; 93018; 93017

== ENCOUNTER 2023-02-16 02:37 | Outpatient (CLI) | payer MEDICARE, SELFPAY ==
[2023-02-16 12:48] LABS: CREATININE 1.6 mg/dL (0.70-1.30); Calculated LDL 28 mg/dL (<100); Cholesterol 95 mg/dL (<200); Estimated GFR 42.75 (mL/min/1.73m2); HDL Cholesterol 61 mg/dL (40-60); Potassium 4.3 mmol/L (3.5-5.1); Triglyceride 34 mg/dL (<150)
== END 2023-02-16 02:38 | disposition home or self-care (01) ==
LOC: LOS 02:37
PROVIDERS: PCP Nurse Practitioner Family; Visit Provider Nurse Practitioner Family
DX: I10 Essential (primary) hypertension (principal); E78.5 Hyperlipidemia, unspecified; R97.20 Elevated prostate specific antigen [PSA]
CPT/HCPCS: 36415; 80061; 82565; 84132; 84154

== ENCOUNTER → 2024-02-25 01:02 | Outpatient (CLI) | payer MEDICARE, SELFPAY ==
--- NOTE | 2024-02-25 07:30 | DI.MRI_ITS ---
Exam(s) MR PELVIS WO EXAM: MR PELVIS WO CLINICAL HISTORY: SI joint on right side very painful,m53.3,g89.29 TECHNIQUE: Multiplanar multisequence MRI of Pelvis was performed COMPARISON: No exams were available for comparison FINDINGS: Bones: There is no fracture or contusion pattern. No bone marrow edema is seen. The sacroiliac join ts are unremarkable. There is no evidence of ankylosis. There is normal signal seen within and medina cent to the sacroiliac joints. There is no evidence to suggest insufficiency fracture. Musculotendinous structures: Musculotendinous structures demonstrate no abnormality. Intrapelvic str uctures demonstrate no significant abnormality. There is a small left perineural root sleeve cyst at S2. IMPRESSION: 1. Unremarkable sacroiliac joints. No evidence to suggest sacroiliitis or insufficiency fractures. 2. Small left perineural root sleeve cyst at S2. DATA REPOSITORY:
--- NOTE | 2024-02-25 07:30 | DI.MRI_ITS ---
Exam(s) MR LUMBAR SPINE WO EXAM: MR LUMBAR SPINE WO CLINICAL HISTORY: Worsening lower back pain,m54.50. TECHNIQUE: Multiplanar multisequence MRI of the Lumbar spine was performed. COMPARISON: No exams were available for comparison FINDINGS: Bones: The last intervertebral disc space is designated the L5/S1 level for the numbering purpose of this examination. The vertebral body heights are well maintained. Alignment is satisfactory. Degene rative changes are seen in the lumbar spine. Cord: The conus tip ends at the T12 level. It is of normal size and signal intensity. T12-L1: No disc herniations or bulges are present. No central spinal canal or neural foraminal stenos is. L1-2: No disc herniations or bulges are present. No central spinal canal or neural foraminal stenosis . L2-3: No disc herniations or bulges are present. No central spinal canal or neural foraminal stenosis . L3-4: There is a diffuse disc bulge. It is eccentric to the right extending into the neural foramen on the right in causing moderate right neural foraminal stenosis. No significant central spinal lesly l or left neural foraminal stenosis is present. L4-5: There is a diffuse disc bulge. There are degenerative changes of the facets and ligamentum fla vum hypertrophy. There is mild narrowing of the central spinal canal. There is mild bilateral neura l foraminal stenosis, right greater than left. L5-S1: No disc herniations or bulges are present. There are degenerative changes seen at the facet francheska ints.No significant central spinal canal or neural foraminal stenosis is present. Soft tissues: The visualized SI joints and sacrum are well maintained. The paraspinal soft tissues ar e unremarkable. Visualized abdominal organs: There are bilateral simple renal cysts. No follow-up is recommended. T here is prominence of the right renal pelvis. IMPRESSION: 1. Degenerative changes in the lumbar spine as described above. Findings are most marked at L3-4 and L4-L5. 2. Prominence of the right renal pelvis. This may represent a extrarenal pelvis but hydronephrosis s hould also be considered. Please correlate clinically. Renal colic CT may be obtained for further e valuation. Unexpected findings DATA REPOSITORY:
== END ==
PROVIDERS: PCP Nurse Practitioner Family; Visit Provider Nurse Practitioner Family
DX: M51.36 Other intervertebral disc degeneration, lumbar region (principal); M53.3 Sacrococcygeal disorders, not elsewhere classified
CPT/HCPCS: 72148; 72195

== ENCOUNTER 2024-03-03 02:24 | Outpatient (CLI) | payer MEDICARE, SELFPAY ==
[2024-03-03 13:26] LABS: CREATININE 1.5 mg/dL (0.70-1.30); Calculated LDL 24 mg/dL (<100); Cholesterol 96 mg/dL (<200); Estimated GFR 45.91 (mL/min/1.73m2); HDL Cholesterol 62 mg/dL (40-60); Triglyceride 51 mg/dL (<150)
[2024-03-03 19:32] LABS: PSA, Screening 5.3 ng/mL (<=6.5)
== END 2024-03-03 02:25 | disposition home or self-care (01) ==
LOC: LOS 02:24
PROVIDERS: PCP Nurse Practitioner Family; Visit Provider Nurse Practitioner Family
DX: E78.5 Hyperlipidemia, unspecified (principal); I10 Essential (primary) hypertension; R97.20 Elevated prostate specific antigen [PSA]; Z12.5 Encounter for screening for malignant neoplasm of prostate
CPT/HCPCS: 36415; 80061; 84153; 82565; 84132

== ENCOUNTER 2024-05-17 08:15 | Outpatient (REF) | payer MEDICARE, SELFPAY ==
--- NOTE | 2024-05-17 07:45 | SKI_PTH ---
PATIENT: John Eckert LOC: [facility] U#:[id number] AGE/SX: 84/M ROOM: RE05/17/[address]: Estevan Vásquez MD : 1940 BED: DIS: 05/17/2024 SPEC #: [id number] RECD: 05/17/24 15:39 STATUS: KARLA REQ #: [id number] HAO: 05/17/24 07:[address]: Estevan Vásquez DEPT: Surgical Specimen RECD BY: Nicole Campbell ENTERED: 05/17/24 15:39 SP TYPE: MALACHI VALDEZ DR: Sanchez Gomez, TIFFANIE Tissues: 1 - SKIN BIOPSY(SHAVE/PUNCH) Procedures: SKIN LEVEL 4 Comments: [id number]
== END 2024-05-17 08:16 | disposition home or self-care (01) ==
LOC: LBN 08:15
PROVIDERS: PCP Nurse Practitioner Family; Visit Provider Otolaryngology
DX: L98.9 Disorder of the skin and subcutaneous tissue, unspecified (principal)
CPT/HCPCS: 88305

== ENCOUNTER 2025-02-19 02:47 | Outpatient (CLI) | payer MEDICARE, SELFPAY ==
--- NOTE | 2025-02-19 06:30 | DI.CT_ITS ---
Exam(s) CT RENAL COLIC WO EXAM: CT RENAL COLIC WO CLINICAL HISTORY: rt sided back pain,m54.9,f/u mri, prominence rt renal pelvis,? extrarenal. TECHNIQUE: Imaging Protocol: Axial computed tomography images with coronal and sagittal reformatted images were created and reviewed. COMPARISON: US RENAL ULTRASOUND(P) {[id number]} from 02/10/2016 FINDINGS: ABDOMEN: Lung Bases: Normal where visualized. Liver: Normal density. No measurable mass. Gallbladder and biliary tract: No radiodense calculus or biliary ductal dilation. Pancreas: Normal density, no abnormal calcifications or inflammatory process. Spleen: Normal. Kidneys: Normal size, contour and axis.There is a 2 mm nonobstructing stone in the lower pole of the right kidney. No left nephrolithiasis.. There is moderate dilatation of the right renal collecting system without obstructing stone. The dilatation extends all the way to the urinary bladder. There is ddfv-bc-copsiidu dilatation of the left renal collecting system. There are bilateral renal cysts. The largest on the left measures 2.7 x 2.4 cm. The largest on the right measures 3.3 cm and is loc ated in the inferior pole. The cysts all appear to be simple. No wall calcification is seen. No so lid component is seen on this noncontrast examination. Note is made of a retroaortic left renal vein . Adrenal glands: No mass is seen. Lymph nodes: Within normal limits. Abdominal Aorta: Abdominal portion non-dilated. Atherosclerotic calcification is present. PELVIS: Bladder:There is mild diffuse thickening of the wall of the urinary bladder. Bowel: There is a small hiatal hernia. No evidence of bowel obstruction or bowel wall thickening is present. Appendix is unremarkable. Peritoneal cavity: No ascites, collection or mesenteric inflammatory response. No free air. Reproductive organs: The prostate gland is markedly enlarged. There is an area of decreased attenuat ion in the central aspect of the prostate gland suspicious for TURP defect. Please correlate with anoop mejía's procedural history. Bones: Within normal limits. Soft Tissues: There is a small fat containing umbilical hernia. IMPRESSION: 1. Nonobstructing 2 mm stone in the lower pole of the right kidney. 2. Dilatation of the collecting systems bilaterally, right greater than left. No obstructing stone i s seen. Obstructing mass cannot be excluded. 3. Enlarged prostate gland with what appears to be a TURP defect. 4. Diffuse thickening of the wall of the urinary bladder. This may be secondary to chronic bladder o utlet obstruction. Cystitis or bladder mass cannot be entirely excluded. Please correlate clinicall y. Urology consult should be considered. 5. Bilateral renal cysts. They appear simple on this noncontrast examination. If further imaging is warranted, postcontrast CT scan of the abdomen or MRI should be considered. RADIATION DOSE DELIVERED: 716.3mGy.cm Total DLP DATA REPOSITORY: All CT scans at this facility are submitted to the National Radiology Data Registry (NRDR) Dose Index Registry (DIR) with the [employer] (ACR). RADIATION OPTIMIZATION: All CT scans at this facility use at least one of these dose optimization te chniques: automated exposure control; mA and/or kV adjustment per patient size (includes targeted exa ms where dose is matched to clinical indication); or iterative reconstruction.
== END 2025-02-19 03:07 ==
LOC: DI 02:47
PROVIDERS: PCP Nurse Practitioner Family; Visit Provider Nurse Practitioner Family
DX: M54.9 Dorsalgia, unspecified (principal)
CPT/HCPCS: 74176

== ENCOUNTER 2025-02-23 00:56 | Outpatient (CLI) | payer MEDICARE, SELFPAY ==
[2025-02-23 12:59] LABS: Anion Gap 7.8 mmol/L (3-11); BUN 24 mg/dL (7-18); CO2 25.2 mmol/L (21.0-32.0); CREATININE 1.5 mg/dL (0.70-1.30); Calcium 9.1 mg/dL (8.5-10.1); Calculated LDL 33 mg/dL (<100); Chloride 108 mmol/L (98-107); Cholesterol 105 mg/dL (<200); Estimated GFR 45.62 (mL/min/1.73m2); Glucose 112 mg/dL (74-106); HDL Cholesterol 63 mg/dL (>or=40); Potassium 4.4 mmol/L (3.5-5.1); Sodium 141 mmol/L (136-145); Triglyceride 49 mg/dL (<150)
== END 2025-02-23 00:57 | disposition home or self-care (01) ==
LOC: LOS 00:56
PROVIDERS: PCP Nurse Practitioner Family; Visit Provider Nurse Practitioner Family
DX: Z12.5 Encounter for screening for malignant neoplasm of prostate (principal); Z13.1 Encounter for screening for diabetes mellitus; Z13.6 Encounter for screening for cardiovascular disorders
CPT/HCPCS: 36415; 80048; 80061; 84153